=== PATIENT | female | born 1970 | race American Indian/Alaskan Native ===

== ENCOUNTER 2017-03-04 22:15 | Inpatient (IN) | payer OTHER ==
[~2017-03-04 22:15] MED LIST: AMIDATE IV ONE; QUELICIN ONE; VERSED IV ONE
--- NOTE | 2017-03-04 23:06 | Emergency Department Report ---
History of Present Illness - General Stated Complaint: OVERDOSE Time Seen by Provider: 03/04/17 22:38 Source: family, EMS Mode of arrival: Stretcher Limitations: Altered Mental Status - History of Present Illness Initial Comments: 46-year-old female with a past medical history hypertension presents to the hospital with overdose attempt. Patient is significantly sedated and unable to provide any history of present illness. History obtained from and EMS at the bedside. states that patient came to him and told him that she had ingested 60 tablets of Benadryl 50 mg. called EMS immediately at 9: 30 PM. Patient was speaking to EMS in route. Vomited 7 times prior to arrival , and is currently sedated. He denies alcohol use tonight, drug use, or other known coingestions. No previous history of suicide attempt. They have been having recent marital problems. Today's also her daughter's birthday and they went today together with no point abnormal behavior. - Related Data Home Medications Medication Instructions Recorded Confirmed Last Taken Unobtainable 03/05/17 03/05/17 Unknown Allergies Allergy/AdvReac Type Severity Reaction Status Date / Time No Known Allergies Allergy Verified 03/04/17 23:57 ED Review of Systems ROS: Stated complaint: OVERDOSE Other details as noted in HPI Comment: Unobtainable due to pts medical conditions ED Past Medical Hx - Medications Home Medications: Home Medications Medication Instructions Recorded Confirmed Last Taken Type Unobtainable 03/05/17 03/05/17 Unknown History ED Physical Exam - Other Other exam information: General: Lethargic Head exam: Atraumatic, normocephalic Eyes exam: Normal appearance, pupils 2-3 mm equal bilaterally and reactive ENT: Moist mucous membrane Neck exam: Normal inspection Respiratory exam: Clear to auscultation bilateral, no wheezes, rales, crackles Cardiovascular: Normal rate and rhythm Abdomen: Soft, nondistended, and nontender, with normal bowel sounds, no rebound, or guarding : 2 vaginal piercings Extremity: Full range of motion normal inspection no deformity Back: Normal Inspection, full range of motion, no tenderness Neurologic: Alert, opens eyes to tactile stimulation, does not follow commands, moves all limbs spontaneously, patient localizes her withdraws from pain Psychiatric: Depressed and sedated Skin: Warm, dry, intact ED Course Vital Signs 03/04/17 03/04/17 03/04/17 22:40 22:50 22:56 Temperature 97.7 F Pulse Rate 84 81 Respiratory 16 16 16 Rate Blood Pressure 135/84 Blood Pressure 134/85 [Right] O2 Sat by Pulse 99 99 99 Oximetry 03/04/17 03/04/17 03/04/17 23:00 23:30 23:51 Temperature Pulse Rate 79 68 76 Respiratory 16 18 17 Rate Blood Pressure Blood Pressure 143/87 136/82 [Right] O2 Sat by Pulse 100 99 100 Oximetry 03/05/17 03/05/17 03/05/17 00:00 00:10 00:15 Temperature Pulse Rate 108 H 102 H 103 H Respiratory 19 10 L 22 Rate Blood Pressure 213/134 160/99 184/103 Blood Pressure [Right] O2 Sat by Pulse 100 100 98 Oximetry 03/05/17 03/05/17 03/05/17 00:30 00:45 01:05 Temperature Pulse Rate 113 H 79 64 Respiratory 25 H 15 Rate Blood Pressure 241/135 176/110 133/80 Blood Pressure [Right] O2 Sat by Pulse 100 100 100 Oximetry 03/05/17 03/05/17 03/05/17 01:30 01:45 01:48 Temperature Pulse Rate 65 64 64 Respiratory 18 18 Rate Blood Pressure 150/92 139/85 Blood Pressure 133/83 [Right] O2 Sat by Pulse 100 100 Oximetry 03/05/17 03/05/17 03/05/17 02:00 02:16 02:30 Temperature Pulse Rate 64 64 63 Respiratory 18 18 18 Rate Blood Pressure 144/84 133/80 136/77 Blood Pressure [Right] O2 Sat by Pulse 100 100 99 Oximetry 03/05/17 03/05/17 03/05/17 02:45 03:00 03:15 Temperature Pulse Rate 60 62 63 Respiratory 18 18 18 Rate Blood Pressure 135/81 136/80 138/81 Blood Pressure [Right] O2 Sat by Pulse 100 99 99 Oximetry 03/05/17 03/05/17 03:30 04:30 Temperature Pulse Rate 60 61 Respiratory 18 Rate Blood Pressure 140/82 154/91 Blood Pressure [Right] O2 Sat by Pulse 100 100 Oximetry - Reevaluation(s) Reevaluation #1: 03/05/17 00:05 I was called into room due to patient's having tonic-clonic seizure activity. Last listed 1 minute. Ativan 1 mg given after seizure had artery stopped. Patient noticed to have bigeminy on the monitor that was temporary and then returned to sinus rhythm after intubation. Patient was intubated with etomidate and succinylcholine and given subsequent additional Ativan 1 mg followed by Versed 5 mg for sedation while waiting fentanyl and Ativan drip to come from pharmacy. CT head has been ordered. Blood pressure is now elevated, patient blood pressure is now elevated, repeat/30 EKG now shows QRS of 94 and QTC of 527. Given the increasing QTC 2 amps of bicarbonate have been ordered 03/05/17 05:17 Reevaluation #2: 03/05/17 01:47 30 min after 2 amps of sodium bicarb pt's qtc is now 308, qrs is 91. - Consultations Consultation #1: 03/04/17 23:02 Cased d/w Roman with poison control. Recommended to monitor for signs of anticholinergic toxicity. r/o coingestions. Benzos recommended as needed for seizures. Continue to monitor QRS to determine if greater than 100. Continue to monitor QTc for greater than 500. 4 QTc control optimized electrolytes magnesium should be 2, potassium should be 4, calcium should be 9. Recommend at least 6-8 hours observation. Benadryl peak is approximately 2 hours. Recommend KUB to evaluate for bezoar 03/04/17 23:46 Received callback from poison control after consultation with the driller hand. Recommend repeat EKG 30 minutes after initial and if any widening QRS or further prolongation and QTc recommend 2 Amps of sodium bicarbonate. Repeat EKG reveals decreasing QRS and QTC compared to previous. 03/05/17 01:52 case rediscussed with Vinay with poison. Repeat EKG's discussed. Bicarb only recommened for prolonged qrs, not qtc. qtc prolongation related to electroyte abnormalities. Pt has hypokalemia with other normal visualized. IV potassium ordered. - Intubation Time Out Performed: Yes Sedative: Etomidate Mg Given: 20 Paralytic: Succinylcholine Mg Given: 100 Laryngoscope: Trinh Size: 3 ET Tube Size: 7.5 Tube Secured Depth (cm): 25 Tube Secured Location: lips Tube Placement Confirmation: visualized tube passing t, equal breath sounds bilat, no breath sounds over epi, confirmation by capnometr Patient Tolerated Procedure: well Intubation Complications: none Additional Comments: Chest x-ray reveals right mainstem intubation. Tube was pulled back to 23 cm at the lip after x-ray review. ED Medical Decision Making - Lab Data Result diagrams: 03/04/17 23:14 03/04/17 23:14 Lab Results 03/04/17 03/04/17 03/04/17 Range/Units 23:14 23:14 23:14 WBC 5.9 (4.5-11.0) K/mm3 RBC 4.00 (3.65-5.03) M/mm3 Hgb 11.9 (10.1-14.3) gm/dl Hct 35.3 (30.3-42.9) % MCV 88 (79-97) fl MCH 30 (28-32) pg MCHC 34 (30-34) % RDW 14.6 (13.2-15.2) % Plt Count 233 (140-440) K/mm3 Lymph % (Auto) 20.7 (13.4-35.0) % Briscoe % (Auto) 7.1 (0.0-7.3) % Eos % (Auto) 3.2 (0.0-4.3) % Baso % (Auto) 0.6 (0.0-1.8) % Lymph # 1.2 (1.2-5.4) K/mm3 Briscoe # 0.4 (0.0-0.8) K/mm3 Eos # 0.2 (0.0-0.4) K/mm3 Baso # 0.0 (0.0-0.1) K/mm3 Seg Neutrophils % 68.4 (40.0-70.0) % Seg Neutrophils # 4.1 (1.8-7.7) K/mm3 ABG pH (7.350-7.450) pH Units ABG pCO2 mm Hg ABG pO2 (80.0-90.0) mm Hg ABG HCO3 (20.0-26.0) mmol/L ABG O2 Saturation (95.0-99.0) % ABG O2 Content (0.0-44) ABG Base Excess (-2.0-3.0) mmol/L ABG Hemoglobin (12.0-16.0) gm/dl ABG Carboxyhemoglobin (0.0-5.0) % ABG Methemoglobin (0.0-1.5) % Oxyhemoglobin (95.0-99.0) % FiO2 % Sodium 143 (137-145) mmol/L Potassium 2.3 L* (3.6-5.0) mmol/L Chloride 97.6 L (98-107) mmol/L Carbon Dioxide 30 (22-30) mmol/L Anion Gap 18 mmol/L BUN 15 (7-17) mg/dL Creatinine 0.8 (0.7-1.2) mg/dL Estimated GFR > 60 ml/min BUN/Creatinine Ratio 19 % Glucose 102 H (65-100) mg/dL Calcium 8.8 (8.4-10.2) mg/dL Magnesium 1.90 (1.7-2.3) mg/dL Total Bilirubin (0.1-1.2) mg/dL Direct Bilirubin (0-0.2) mg/dL Indirect Bilirubin mg/dL AST (5-40) units/L ALT (7-56) units/L Alkaline Phosphatase (35-129) units/L Total Creatine Kinase (30-135) units/L Total Protein (6.3-8.2) g/dL Albumin (3.9-5) g/dL Albumin/Globulin Ratio % HCG, Qual (Negative) Urine Color (Yellow) Urine Turbidity (Clear) Urine pH (5.0-7.0) Ur Specific Rector (1.003-1.030) Urine Protein (Negative) mg/dL Urine Glucose (UA) (Negative) mg/dL Urine Ketones (Negative) mg/dL Urine Blood (Negative) Urine Nitrite (Negative) Urine Bilirubin (Negative) Urine Urobilinogen (<2.0) mg/dL Ur Leukocyte Esterase (Negative) Urine WBC (Auto) (0.0-6.0) /HPF Urine RBC (Auto) (0.0-6.0) /HPF U Epithel Cells (Auto) (0-13.0) /HPF Hyaline Casts /LPF Salicylates < 0.3 L (2.8-20.0) mg/dL Urine Opiates Screen Urine Methadone Screen Acetaminophen (10.0-30.0) ug/mL Ur Barbiturates Screen Ur Phencyclidine Scrn Ur Amphetamines Screen U Benzodiazepines Scrn Urine Cocaine Screen U Marijuana (THC) Screen Plasma/Serum Alcohol (0-0.07) gm% 03/04/17 03/04/17 03/04/17 Range/Units 23:14 23:14 23:14 WBC (4.5-11.0) K/mm3 RBC (3.65-5.03) M/mm3 Hgb (10.1-14.3) gm/dl Hct (30.3-42.9) % MCV (79-97) fl MCH (28-32) pg MCHC (30-34) % RDW (13.2-15.2) % Plt Count (140-440) K/mm3 Lymph % (Auto) (13.4-35.0) % Briscoe % (Auto) (0.0-7.3) % Eos % (Auto) (0.0-4.3) % Baso % (Auto) (0.0-1.8) % Lymph # (1.2-5.4) K/mm3 Briscoe # (0.0-0.8) K/mm3 Eos # (0.0-0.4) K/mm3 Baso # (0.0-0.1) K/mm3 Seg Neutrophils % (40.0-70.0) % Seg Neutrophils # (1.8-7.7) K/mm3 ABG pH (7.350-7.450) pH Units ABG pCO2 mm Hg ABG pO2 (80.0-90.0) mm Hg ABG HCO3 (20.0-26.0) mmol/L ABG O2 Saturation (95.0-99.0) % ABG O2 Content (0.0-44) ABG Base Excess (-2.0-3.0) mmol/L ABG Hemoglobin (12.0-16.0) gm/dl ABG Carboxyhemoglobin (0.0-5.0) % ABG Methemoglobin (0.0-1.5) % Oxyhemoglobin (95.0-99.0) % FiO2 % Sodium (137-145) mmol/L Potassium (3.6-5.0) mmol/L Chloride (98-107) mmol/L Carbon Dioxide (22-30) mmol/L Anion Gap mmol/L BUN (7-17) mg/dL Creatinine (0.7-1.2) mg/dL Estimated GFR ml/min BUN/Creatinine Ratio % Glucose (65-100) mg/dL Calcium (8.4-10.2) mg/dL Magnesium (1.7-2.3) mg/dL Total Bilirubin (0.1-1.2) mg/dL Direct Bilirubin (0-0.2) mg/dL Indirect Bilirubin mg/dL AST (5-40) units/L ALT (7-56) units/L Alkaline Phosphatase (35-129) units/L Total Creatine Kinase 87 (30-135) units/L Total Protein (6.3-8.2) g/dL Albumin (3.9-5) g/dL Albumin/Globulin Ratio % HCG, Qual Negative (Negative) Urine Color (Yellow) Urine Turbidity (Clear) Urine pH (5.0-7.0) Ur Specific Rector (1.003-1.030) Urine Protein (Negative) mg/dL Urine Glucose (UA) (Negative) mg/dL Urine Ketones (Negative) mg/dL Urine Blood (Negative) Urine Nitrite (Negative) Urine Bilirubin (Negative) Urine Urobilinogen (<2.0) mg/dL Ur Leukocyte Esterase (Negative) Urine WBC (Auto) (0.0-6.0) /HPF Urine RBC (Auto) (0.0-6.0) /HPF U Epithel Cells (Auto) (0-13.0) /HPF Hyaline Casts /LPF Salicylates (2.8-20.0) mg/dL Urine Opiates Screen Urine Methadone Screen Acetaminophen < 15.0 (10.0-30.0) ug/mL Ur Barbiturates Screen Ur Phencyclidine Scrn Ur Amphetamines Screen U Benzodiazepines Scrn Urine Cocaine Screen U Marijuana (THC) Screen Plasma/Serum Alcohol (0-0.07) gm% 03/04/17 03/04/17 03/04/17 Range/Units 23:14 23:14 23:20 WBC (4.5-11.0) K/mm3 RBC (3.65-5.03) M/mm3 Hgb (10.1-14.3) gm/dl Hct (30.3-42.9) % MCV (79-97) fl MCH (28-32) pg MCHC (30-34) % RDW (13.2-15.2) % Plt Count (140-440) K/mm3 Lymph % (Auto) (13.4-35.0) % Briscoe % (Auto) (0.0-7.3) % Eos % (Auto) (0.0-4.3) % Baso % (Auto) (0.0-1.8) % Lymph # (1.2-5.4) K/mm3 Briscoe # (0.0-0.8) K/mm3 Eos # (0.0-0.4) K/mm3 Baso # (0.0-0.1) K/mm3 Seg Neutrophils % (40.0-70.0) % Seg Neutrophils # (1.8-7.7) K/mm3 ABG pH 7.465 H (7.350-7.450) pH Units ABG pCO2 44.8 mm Hg ABG pO2 103.1 H (80.0-90.0) mm Hg ABG HCO3 31.5 H (20.0-26.0) mmol/L ABG O2 Saturation 97.8 (95.0-99.0) % ABG O2 Content 15.6 (0.0-44) ABG Base Excess 7.0 H (-2.0-3.0) mmol/L ABG Hemoglobin 11.5 L (12.0-16.0) gm/dl ABG Carboxyhemoglobin 1.5 (0.0-5.0) % ABG Methemoglobin 0.5 (0.0-1.5) % Oxyhemoglobin 95.8 (95.0-99.0) % FiO2 21 % Sodium (137-145) mmol/L Potassium (3.6-5.0) mmol/L Chloride (98-107) mmol/L Carbon Dioxide (22-30) mmol/L Anion Gap mmol/L BUN (7-17) mg/dL Creatinine (0.7-1.2) mg/dL Estimated GFR ml/min BUN/Creatinine Ratio % Glucose (65-100) mg/dL Calcium (8.4-10.2) mg/dL Magnesium (1.7-2.3) mg/dL Total Bilirubin 0.40 (0.1-1.2) mg/dL Direct Bilirubin < 0.2 (0-0.2) mg/dL Indirect Bilirubin 0.2 mg/dL AST 15 (5-40) units/L ALT 10 (7-56) units/L Alkaline Phosphatase 86 (35-129) units/L Total Creatine Kinase (30-135) units/L Total Protein 6.8 (6.3-8.2) g/dL Albumin 3.9 (3.9-5) g/dL Albumin/Globulin Ratio 1.3 % HCG, Qual (Negative) Urine Color (Yellow) Urine Turbidity (Clear) Urine pH (5.0-7.0) Ur Specific Rector (1.003-1.030) Urine Protein (Negative) mg/dL Urine Glucose (UA) (Negative) mg/dL Urine Ketones (Negative) mg/dL Urine Blood (Negative) Urine Nitrite (Negative) Urine Bilirubin (Negative) Urine Urobilinogen (<2.0) mg/dL Ur Leukocyte Esterase (Negative) Urine WBC (Auto) (0.0-6.0) /HPF Urine RBC (Auto) (0.0-6.0) /HPF U Epithel Cells (Auto) (0-13.0) /HPF Hyaline Casts /LPF Salicylates (2.8-20.0) mg/dL Urine Opiates Screen Urine Methadone Screen Acetaminophen (10.0-30.0) ug/mL Ur Barbiturates Screen Ur Phencyclidine Scrn Ur Amphetamines Screen U Benzodiazepines Scrn Urine Cocaine Screen U Marijuana (THC) Screen Plasma/Serum Alcohol < 0.01 (0-0.07) gm% 03/05/17 03/05/17 Range/Units 02:07 02:07 WBC (4.5-11.0) K/mm3 RBC (3.65-5.03) M/mm3 Hgb (10.1-14.3) gm/dl Hct (30.3-42.9) % MCV (79-97) fl MCH (28-32) pg MCHC (30-34) % RDW (13.2-15.2) % Plt Count (140-440) K/mm3 Lymph % (Auto) (13.4-35.0) % Briscoe % (Auto) (0.0-7.3) % Eos % (Auto) (0.0-4.3) % Baso % (Auto) (0.0-1.8) % Lymph # (1.2-5.4) K/mm3 Briscoe # (0.0-0.8) K/mm3 Eos # (0.0-0.4) K/mm3 Baso # (0.0-0.1) K/mm3 Seg Neutrophils % (40.0-70.0) % Seg Neutrophils # (1.8-7.7) K/mm3 ABG pH (7.350-7.450) pH Units ABG pCO2 mm Hg ABG pO2 (80.0-90.0) mm Hg ABG HCO3 (20.0-26.0) mmol/L ABG O2 Saturation (95.0-99.0) % ABG O2 Content (0.0-44) ABG Base Excess (-2.0-3.0) mmol/L ABG Hemoglobin (12.0-16.0) gm/dl ABG Carboxyhemoglobin (0.0-5.0) % ABG Methemoglobin (0.0-1.5) % Oxyhemoglobin (95.0-99.0) % FiO2 % Sodium (137-145) mmol/L Potassium (3.6-5.0) mmol/L Chloride (98-107) mmol/L Carbon Dioxide (22-30) mmol/L Anion Gap mmol/L BUN (7-17) mg/dL Creatinine (0.7-1.2) mg/dL Estimated GFR ml/min BUN/Creatinine Ratio % Glucose (65-100) mg/dL Calcium (8.4-10.2) mg/dL Magnesium (1.7-2.3) mg/dL Total Bilirubin (0.1-1.2) mg/dL Direct Bilirubin (0-0.2) mg/dL Indirect Bilirubin mg/dL AST (5-40) units/L ALT (7-56) units/L Alkaline Phosphatase (35-129) units/L Total Creatine Kinase (30-135) units/L Total Protein (6.3-8.2) g/dL Albumin (3.9-5) g/dL Albumin/Globulin Ratio % HCG, Qual (Negative) Urine Color Straw (Yellow) Urine Turbidity Clear (Clear) Urine pH 9.0 H (5.0-7.0) Ur Specific Rector 1.010 (1.003-1.030) Urine Protein <15 mg/dl (Negative) mg/dL Urine Glucose (UA) Neg (Negative) mg/dL Urine Ketones Neg (Negative) mg/dL Urine Blood Neg (Negative) Urine Nitrite Neg (Negative) Urine Bilirubin Neg (Negative) Urine Urobilinogen < 2.0 (<2.0) mg/dL Ur Leukocyte Esterase Neg (Negative) Urine WBC (Auto) < 1.0 (0.0-6.0) /HPF Urine RBC (Auto) 1.0 (0.0-6.0) /HPF U Epithel Cells (Auto) < 1.0 (0-13.0) /HPF Hyaline Casts 1 /LPF Salicylates (2.8-20.0) mg/dL Urine Opiates Screen Presumptive negative Urine Methadone Screen Presumptive negative Acetaminophen (10.0-30.0) ug/mL Ur Barbiturates Screen Presumptive negative Ur Phencyclidine Scrn Presumptive negative Ur Amphetamines Screen Presumptive negative U Benzodiazepines Scrn Presumptive positive Urine Cocaine Screen Presumptive negative U Marijuana (THC) Screen Presumptive negative Plasma/Serum Alcohol (0-0.07) gm% - EKG Data -: EKG Interpreted by Me (sinus 81, lvh with repol qrs 105, qtc 453) - EKG Data 03/04/17 23:47 Repeat EKG performed at 2342 showed sinus rhythm rate 73 with LVH with re-pole. QRS 86 QTc 442 which is a decrease compared to previous EKG - Radiology Data Radiology results: report reviewed (ct head: naf), image reviewed (chest x-ray shows right mainstem intubation no acute infiltrate) interpreted by me: KUB: No bezoar identified, probable calcified fibroid, read by me - Medical Decision Making Patient requires ICU admission. Intubated for anticholinergic toxicity was altering ultimately mental status and seizure activity. Intubated on Versed and fentanyl drip per IV potassium ordered. Please control consultation. - Differential Diagnosis suicidal, overdose Critical Care Time: No Critical care attestation.: If time is entered above; I have spent that time in minutes in the direct care of this critically ill patient, excluding procedure time. ED Disposition Clinical Impression: Anticholinergic drug overdose, Seizure, Suicidal deliberate poisoning, Hypokalemia, Endotracheally intubated Disposition: - OP ADMIT IP TO THIS HOSP Is pt being admited?: Yes Condition: Serious Time of Disposition: 02:02
[2017-03-04] MEDS ORDERED: NACL 0.9% 1000 ML 1,000 ML IV ONE (23:35)
[2017-03-04 23:37] LABS: ABG HCO3 31.5 mmol/L (20.0-26.0); ABG Oxygen Saturation 97.8 % (95.0-99.0); ABG PCO2 44.8 mm Hg; ABG PH 7.465 pH Units (7.350-7.450); ABG PO2 103.1 mm Hg (80.0-90.0)
[2017-03-04] MEDS ORDERED: ATIVAN ONE (23:56)
[2017-03-05 00:03] LABS: Basophils % (Auto) 0.6 % (0.0-1.8); Eosinophils % (Auto) 3.2 % (0.0-4.3); Hematocrit 35.3 % (30.3-42.9); Hemoglobin 11.9 gm/dl (10.1-14.3); Mean Corpuscular HGB Conc 34 % (30-34); Mean Corpuscular Hemoglobin 30 pg (28-32); Mean Corpuscular Volume 88 fl (79-97); Platelet Count 233 K/mm3 (140-440); Red Cell Distribution Width 14.6 % (13.2-15.2); White Blood Count 5.9 K/mm3 (4.5-11.0)
[2017-03-05] MEDS ORDERED: ARTIFICIAL TEARS OPHTH OINT OU PRN (00:06)
[2017-03-05] MEDS ORDERED: VASELINE LIP THERAPY TP PRN (00:06)
[2017-03-05] MEDS ORDERED: VERSED IV ONE (00:07)
[2017-03-05] MEDS ORDERED: QUELICIN IV ONE (00:10)
[2017-03-05] MEDS ORDERED: ATIVAN IV ONE ×2 (00:10→00:17)
[2017-03-05] MEDS ORDERED: AMIDATE IV ONE (00:10)
[2017-03-05] MEDS ORDERED: SODIUM BICARBONATE IV ONE ×3 (00:42→00:49)
[2017-03-05] MEDS ORDERED: NACL 0.9% 500 ML IV SCH (01:00)
[2017-03-05] MEDS ORDERED: ATIVAN 100 MG in NACL 0.9% 50 ML, VIAFLEX EMPTY CONTAINER 0 ML IV SCH (01:00)
[2017-03-05] MEDS ORDERED: VERSED IV NR (01:00)
[2017-03-05] MEDS ORDERED: fentaNYL DRIP Premix 2,000 MCG/100 ML BAG IV SCH (01:00)
[2017-03-05 01:04] LABS: Anion Gap 18 mmol/L; BUN/Creatinine Ratio 19; Blood Urea Nitrogen 15 mg/dL (7-17); Calcium 8.8 mg/dL (8.4-10.2); Carbon Dioxide 30 mmol/L (22-30); Chloride 97.6 mmol/L (98-107); Glucose 102 mg/dL (65-100); Sodium 143 mmol/L (137-145)
[2017-03-05 01:07] LABS: Alanine Aminotransferase 10 units/L (7-56); Albumin 3.9 g/dL (3.9-5); Albumin/Globulin Ratio 1.3 %; Alkaline Phosphatase 86 units/L (35-129); Total Protein 6.8 g/dL (6.3-8.2)
[2017-03-05 01:11] LABS: Bilirubin,Direct < 0.2 mg/dL (0-0.2); Bilirubin,Indirect 0.2 mg/dL
[2017-03-05 01:17] LABS: Potassium 2.3 mmol/L (3.6-5.0)
--- NOTE | 2017-03-05 01:35 | Cat Scan Report ---
FINAL REPORT EXAM: CT HEAD/BRAIN WO CON HISTORY: seizure, benadryl overdose, ams TECHNIQUE: Routine axial imaging was obtained of the brain without IV contrast. FINDINGS: There are no attenuation abnormalities. The ventricular system is appropriate in size and is symmetric. The posterior fossa structures appear normal. The sinuses are clear. The mastoid air cells are well pneumatized. IMPRESSION: Within normal limits.
[2017-03-05 02:10] LABS: Urine Drugs of Abuse Note Disclamer
[2017-03-05] MEDS: KCL 10MEQ/100ML 10 MEQ/100 ML BAG IV SCH ×7 (02:11→15:40)
[2017-03-05] MEDS ORDERED: ZOFRAN IV PRN (02:23)
[2017-03-05] MEDS ORDERED: MILK OF MAGNESIA PO PRN (02:23)
[2017-03-05] MEDS ORDERED: TYLENOL PO PRN (02:23)
--- NOTE | 2017-03-05 02:23 | History and Physical Report ---
History of Present Illness Date of examination: 03/05/17 History of present illness: 46-year-old man with medical problems brought to the emergency room because she took 24 tablets of Benadryl, 50 mg and 32 sleeping pills. In the emergency room she had a seizure and was intubated. at bedside stated that she wanted to kill herself, there is some marital problems going on. Episodes of vomiting. Her review of systems is unobtainable PAST MEDICAL HISTORY:none PAST SURGICAL HISTORY: None FAMILY HISTORY: Hypertension SOCIAL HISTORY: Denies alcohol, tobacco, drugs Medications and Allergies Allergies Allergy/AdvReac Type Severity Reaction Status Date / Time No Known Allergies Allergy Verified 03/04/17 23:57 Home Medications Medication Instructions Recorded Confirmed Last Taken Type Unobtainable 03/05/17 03/05/17 Unknown History Active Meds: Active Medications Hydrophilic Ointment (Vaseline Lip Therapy) 1 applic TP Q2HR PRN PRN Reason: Dry Lips Fentanyl Citrate (Fentanyl Drip Premix) 2,000 mcg in 100 mls @ 3.175 mls/hr IV TITR JOHN; 1 MCG/KG/HR PRN Reason: Protocol Last Admin: 03/05/17 00:53 Dose: 1 mcg/kg/hr, 3.175 mls/hr Lorazepam 100 mg/ Sodium Chloride/ Miscellaneous Information 100 mls @ 1 mls/ hr IV TITR JOHN; 1 MG/HR PRN Reason: Protocol Last Admin: 03/05/17 01:07 Dose: 1 mg/hr, 1 mls/hr Potassium Chloride (Kcl 10meq/100ml) 10 meq in 100 mls @ 100 mls/hr IV Q1H JOHN Stop: 03/05/17 05:59 Last Admin: 03/05/17 02:11 Dose: 100 mls/hr Multi-Ingred Cream/Lotion/Oil/Oint (Artificial Tears Ophth Oint) 1 applic OU Q4HR PRN PRN Reason: Dry Eye(s) Sodium Bicarbonate (Sodium Bicarbonate) 50 meq IV ONCE ONE Stop: 03/05/17 00:43 Last Admin: 03/05/17 00:48 Dose: 50 meq Sodium Bicarbonate (Sodium Bicarbonate) 50 meq IV ONCE ONE Stop: 03/05/17 00:44 Last Admin: 03/05/17 00:48 Dose: 50 meq Sodium Chloride (Nacl 0.9% 500 Ml) 1 ml IV DIRECT JOHN Exam - Physical Exam Narrative exam: Gen. appearance: Patient lying in bed in no acute distress, intubated HEENT: Normocephalic/atraumatic, pupils equal round reactive to light, unable to do extra alkaline movement , no scleral icterus, no JVD or thyromegaly or nodule, neck is supple, mucous membrane moist, no erythema or exudate Heart: S1-S2, regular rate and rhythm Lungs: Clear to auscultation bilateral breathing comfortable Abdomen: Positive bowel sounds, nontender, nondistended, no organomegaly Extremities: No edema, cyanosis, clubbing Neuro:: sedated Skin: No rash, nodules, warm dry - Constitutional Vitals: Temp Pulse Resp BP Pulse Ox 97.7 F 64 18 144/84 100 03/04/17 22:56 03/05/17 02:00 03/05/17 02:00 03/05/17 02:00 03/05/17 02:00 Results - Labs CBC & Chem 7: 03/04/17 23:14 03/04/17 23:14 Labs: Abnormal lab results 03/04/17 03/04/17 03/04/17 Range/Units 23:14 23:14 23:20 ABG pH 7.465 H (7.350-7.450) pH Units ABG pO2 103.1 H (80.0-90.0) mm Hg ABG HCO3 31.5 H (20.0-26.0) mmol/L ABG Base Excess 7.0 H (-2.0-3.0) mmol/L ABG Hemoglobin 11.5 L (12.0-16.0) gm/dl Potassium 2.3 L* (3.6-5.0) mmol/L Chloride 97.6 L (98-107) mmol/L Glucose 102 H (65-100) mg/dL Salicylates < 0.3 L (2.8-20.0) mg/dL - Imaging and Cardiology EKG: image reviewed Chest x-ray: image reviewed CT Scan - head: report reviewed Assessment and Plan Assessment Acute respiratory failure Drug overdose Seizure prophylaxis secondary to #2 Suicidal attempt Plan Admit to medicine Continue Ativan drip, start IV fluid, consult critical care Monitor QT, QRS See poison control recommendations per emergency room physician note Consults psych when patient is awake DVT prophylaxis
[2017-03-05 02:25] LABS: Bilirubin,Urine NEG (Negative); Blood,Urine NEG (Negative); Ketones,Urine NEG (Negative); Leukocyte Esterase,Urine NEG (Negative); Nitrite,Urine NEG (Negative); Protein,Urine <15 mg/dL mg/dL (Negative); Urobilinogen,Urine < 2.0 mg/dL (<2.0); WBC,Urine < 1.0 /HPF (0.0-6.0)
[2017-03-05] MEDS: NACL 0.9% 1000 ML 1,000 ML IV SCH ×3 (03:30→14:34)
[2017-03-05] MEDS ORDERED: KCL 10MEQ/100ML 10 MEQ/100 ML BAG IV ONE ×2 (04:24→05:45)
[2017-03-05 04:43] LABS: ABG Base Excess 7.6 mmol/L (-2.0-3.0); ABG HCO3 28.9 mmol/L (20.0-26.0); ABG Oxygen Saturation 99.4 % (95.0-99.0); ABG PCO2 30.6 mm Hg; ABG PH 7.593 pH Units (7.350-7.450); ABG PO2 212.2 mm Hg (80.0-90.0)
--- NOTE | 2017-03-05 07:35 | XRay Report ---
SUPINE KUB: History: Overdose. The abdominal gas pattern is unremarkable. No masses or organomegaly is identified and there is no gross evidence of free air or fluid. 4 cm calcified uterine fibroid in the central pelvis is noted. IMPRESSION: No acute process identified.
--- NOTE | 2017-03-05 07:42 | XRay Report ---
AP CHEST: HISTORY: Endotracheal tube placement This exam is just presented to me for interpretation. The endotracheal tube appears to terminate at the orifice of the right mainstem bronchus. There appears to be partial atelectasis in the left lower lobe. These findings are concerning for a partial right mainstem bronchus intubation. Recommend retraction of endotracheal tube by 3-4 cm. The remaining lungs are clear. No pleural effusion or pneumothorax. Normal heart and mediastinal structures. IMPRESSION: Partial right mainstem bronchus intubation with partial atelectasis in the left lower lobe. These findings were discussed with Luis Carlos, ER Director, at 0738 hrs.
[2017-03-05 07:43] LABS: Hematocrit 32.3 % (30.3-42.9); Hemoglobin 10.8 gm/dl (10.1-14.3); Mean Corpuscular HGB Conc 33 % (30-34); Mean Corpuscular Hemoglobin 30 pg (28-32); Mean Corpuscular Volume 89 fl (79-97); Platelet Count 219 K/mm3 (140-440); Red Blood Count 3.63 M/mm3 (3.65-5.03); Red Cell Distribution Width 14.7 % (13.2-15.2)
[2017-03-05 07:58] LABS: Anion Gap 15 mmol/L; BUN/Creatinine Ratio 19; Blood Urea Nitrogen 13 mg/dL (7-17); Calcium 7.8 mg/dL (8.4-10.2); Carbon Dioxide 30 mmol/L (22-30); Chloride 100.5 mmol/L (98-107); Glucose 95 mg/dL (65-100); Sodium 143 mmol/L (137-145)
[2017-03-05 08:18] LABS: Potassium 2.4 mmol/L (3.6-5.0)
--- NOTE | 2017-03-05 08:34 | XRay Report ---
AP CHEST: HISTORY: Endotracheal tube placement The endotracheal tube has been retracted since earlier today at 0021 hours and now terminates 5 cm superior to the angelina. Left lower lobe atelectasis has resolved. The lungs are clear. Normal heart and mediastinal structures. IMPRESSION: Unremarkable AP chest.
--- NOTE | 2017-03-05 09:06 | Consultation ---
History of Present Illness Consult date: 03/05/17 Requesting physician: JUNIOR COLEY Reason for consult: other (Acute Respiratory Failure; Drug Overdose) History of present illness: PULMONARY/CCM CONSULT NOTE (Full dictation # [id number]) Please see dictated notes for full details Medications and Allergies Allergies Allergy/AdvReac Type Severity Reaction Status Date / Time No Known Allergies Allergy Verified 03/04/17 23:57 Home Medications Medication Instructions Recorded Confirmed Last Taken Type Hydrochlorothiazide [HCTZ] 25 mg PO QDAY 03/05/17 03/05/17 Unknown History Active Meds: Active Medications Acetaminophen (Tylenol) 650 mg PO Q4H PRN PRN Reason: Pain MILD(1-3)/Fever >100.5/CASPER Enoxaparin Sodium (Lovenox) 40 mg SUB-Q QDAY@1000 JOHN Hydrophilic Ointment (Vaseline Lip Therapy) 1 applic TP Q2HR PRN PRN Reason: Dry Lips Fentanyl Citrate (Fentanyl Drip Premix) 2,000 mcg in 100 mls @ 3.175 mls/hr IV TITR JOHN; 1 MCG/KG/HR PRN Reason: Protocol Last Admin: 03/05/17 00:53 Dose: 1 mcg/kg/hr, 3.175 mls/hr Lorazepam 100 mg/ Sodium Chloride/ Miscellaneous Information 100 mls @ 1 mls/ hr IV TITR JOHN; 1 MG/HR PRN Reason: Protocol Last Admin: 03/05/17 01:07 Dose: 1 mg/hr, 1 mls/hr Sodium Chloride (Nacl 0.9% 1000 Ml) 1,000 mls @ 150 mls/hr IV DIRECT JOHN Last Admin: 03/05/17 03:30 Dose: 150 mls/hr Magnesium Hydroxide (Milk Of Magnesia) 30 ml PO Q4H PRN PRN Reason: Constipation Multi-Ingred Cream/Lotion/Oil/Oint (Artificial Tears Ophth Oint) 1 applic OU Q4HR PRN PRN Reason: Dry Eye(s) Ondansetron HCl (Zofran) 4 mg IV Q8H PRN PRN Reason: N/V unrelieved by Reglan Sodium Chloride (Nacl 0.9% 500 Ml) 1 ml IV DIRECT JOHN Physical Examination Vital signs: Vital Signs Pulse Resp BP Pulse Ox 84 16 134/85 99 03/04/17 22:40 03/04/17 22:40 03/04/17 22:40 03/04/17 22:40 Results - Laboratory Findings CBC and BMP: 03/05/17 07:21 03/05/17 07:21 ABG ABG pH 7.593 pH Units (7.350-7.450) H 03/05/17 00:30 ABG pCO2 30.6 mm Hg 03/05/17 00:30 ABG pO2 212.2 mm Hg (80.0-90.0) H 03/05/17 00:30 ABG O2 Saturation 99.4 % (95.0-99.0) H 03/05/17 00:30 Abnormal lab findings: Abnormal Labs 03/05/17 03/05/17 07:21 07:21 WBC 12.0 H RBC 3.63 L Potassium 2.4 L* Calcium 7.8 L
[2017-03-05] MEDS ORDERED: LOVENOX SUB-Q SCH (10:00)
[2017-03-05] MEDS ORDERED: APRESOLINE IV PRN (11:00)
[2017-03-05 11:27] LABS: Creatine Kinase 60 units/L (30-135)
[2017-03-05 11:30] LABS: Creatine Kinase MB < 1.0 ng/mL (0.0-4.0)
[2017-03-05] MEDS ORDERED: PROVENTIL IH PRN (12:00)
[2017-03-05] MEDS: LOVENOX SUB-Q SCH (12:21)
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
[2017-03-05] MEDS ORDERED: SODIUM BICARBONATE FEEDTUBE PRN (16:26)
[2017-03-05] MEDS ORDERED: PANCREAZE DR 10,500 UNIT FEEDTUBE PRN (16:26)
[2017-03-05] MEDS ORDERED: SIMPLE SYRUP FEEDTUBE PRN ×2 (16:26)
--- NOTE | 2017-03-05 16:28 | Event Note ---
Date: 03/05/17 Patient seen and examined in the ER, waiting for ICU bed Admitted with suicidal attempt with drugs Discussed with and mental health at bedside patient remained intubated, BP noted to be elevated. Will place on hydralazine iv as needed, initiate TF Continue current Mx and plan as dictated in the h and P.
[2017-03-05 17:01] LABS: ISTAT Base Excess 9; ISTAT HCO3 33.3; ISTAT PCO2 51.7 (35-45); ISTAT PH 7.417 (7.35-7.45); ISTAT PO2 126 (80-105); ISTAT SO2 99; ISTAT TCO2 35
[2017-03-06 04:18] LABS: Basophils % (Auto) 0.6 % (0.0-1.8); Eosinophils % (Auto) 1.1 % (0.0-4.3); Hematocrit 29.7 % (30.3-42.9); Mean Corpuscular HGB Conc 34 % (30-34); Mean Corpuscular Hemoglobin 29 pg (28-32); Mean Corpuscular Volume 87 fl (79-97); Platelet Count 168 K/mm3 (140-440); Red Blood Count 3.41 M/mm3 (3.65-5.03); Red Cell Distribution Width 14.9 % (13.2-15.2); White Blood Count 9.3 K/mm3 (4.5-11.0)
[2017-03-06 04:42] LABS: Anion Gap 15 mmol/L; BUN/Creatinine Ratio 15; Blood Urea Nitrogen 12 mg/dL (7-17); Carbon Dioxide 25 mmol/L (22-30); Chloride 106.9 mmol/L (98-107); Glucose 71 mg/dL (65-100); Sodium 144 mmol/L (137-145)
[2017-03-06] MEDS: NACL 0.9% 1000 ML 1,000 ML IV SCH (04:42)
[2017-03-06 04:44] LABS: Potassium 2.9 mmol/L (3.6-5.0)
[2017-03-06 05:57] LABS: ISTAT Base Excess 7; ISTAT HCO3 29.9; ISTAT PCO2 36.9 (35-45); ISTAT PH 7.518 (7.35-7.45); ISTAT PO2 122 (80-105); ISTAT SO2 99; ISTAT TCO2 31
--- NOTE | 2017-03-06 07:22 | XRay Report ---
SUPINE KUB: History: [place] sump placement Multiple lines and wires and umbilical piercing overlying the abdomen. The visualized bowel gas pattern is normal. The GI tube is folded upon itself in the fundus of the stomach with the distal tip just beneath the left hemidiaphragm. IMPRESSION: The GI tube terminates in the fundus of the stomach as described.
--- NOTE | 2017-03-06 07:24 | XRay Report ---
AP CHEST: HISTORY: Followup respiratory failure The endotracheal tube and GI tube are in adequate position. The lungs remain clear. Heart mediastinal structures are unremarkable. No acute process is identified. IMPRESSION: Unremarkable AP chest.
[2017-03-06] MEDS ORDERED: POTASSIUM CHLORIDE FEEDTUBE ONE ×2 (07:30→14:00)
[2017-03-06] MEDS: KCL 10MEQ/100ML 10 MEQ/100 ML BAG IV SCH ×7 (08:35→22:40)
--- NOTE | 2017-03-06 08:42 | XRay Report ---
SUPINE KUB: History: OG tube replaced. The OG tube has apparently been replacement remains in essentially the same position since earlier today at 0655 hours. The tube is slightly coiled upon itself in the fundus the stomach with the tip projecting beneath the left hemidiaphragm. The bowel gas pattern remains unremarkable. Calcified uterine fibroid is noted in the pelvis. IMPRESSION: OG tube as described.
--- NOTE | 2017-03-06 09:24 | Progress Note ---
Assessment and Plan Acute Respiratory Failure on MVS Acute Drug OD (Benadryl; Anticholinergic) HTN Depression Anemia Hypokalemia - hold fentanyl for sedation vacation - begin weaning via PSV as tolerated - place NGT if does not pass SBT - addressed VAP bundle - replaced potassium - psychiatry consulted - get EKG - continue GI & VTE prophylaxis - re-evaluate in am & prn ..34' CCT Subjective Date of service: 03/06/17 Principal diagnosis: Drug Overdose (Benadrl); Acute Respiratory Failure on MVS Interval history: Patient is seen today for: Acute resp failure on MVS; S/P Drug OD with benadryl Seen and examined at bedside; 24hour events reviewed; nursing and respiratory care staff consulted; no adverse overnight events reported to me; remains on MVS ; AMS is persistent but improving; arousable; No N/V/F/C; no repeat seizures; no critical arrhythmia's; no gross bleeding Objective Vital Signs - 12hr 03/05/17 03/05/17 03/05/17 21:30 21:48 21:50 Temperature Pulse Rate 54 L 83 78 Pulse Rate [ Apical] Respiratory 16 13 16 Rate Blood Pressure 138/78 179/91 O2 Sat by Pulse 100 Oximetry 03/05/17 03/05/17 03/05/17 22:00 22:10 22:20 Temperature Pulse Rate 69 62 59 L Pulse Rate [ 50 L Apical] Respiratory 14 16 16 Rate Blood Pressure 154/86 179/91 147/87 O2 Sat by Pulse 99 100 100 Oximetry 03/05/17 03/05/17 03/05/17 22:30 22:40 22:49 Temperature Pulse Rate 56 L 55 L 54 L Pulse Rate [ Apical] Respiratory 16 16 16 Rate Blood Pressure 153/86 153/86 149/81 O2 Sat by Pulse 100 100 100 Oximetry 03/05/17 03/05/17 03/05/17 22:50 23:00 23:03 Temperature Pulse Rate 54 L 52 L 54 L Pulse Rate [ Apical] Respiratory 16 16 Rate Blood Pressure 149/81 137/78 O2 Sat by Pulse 100 100 Oximetry 03/05/17 03/05/17 03/05/17 23:10 23:20 23:30 Temperature Pulse Rate 53 L 52 L 53 L Pulse Rate [ Apical] Respiratory 16 16 16 Rate Blood Pressure 137/78 133/79 140/77 O2 Sat by Pulse 100 100 100 Oximetry 03/05/17 03/05/17 03/06/17 23:40 23:50 00:00 Temperature Pulse Rate 52 L 52 L 51 L Pulse Rate [ 49 L Apical] Respiratory 16 16 16 Rate Blood Pressure 140/77 138/77 134/76 O2 Sat by Pulse 100 100 100 Oximetry 03/06/17 03/06/17 03/06/17 00:03 00:10 00:16 Temperature 99.6 F Pulse Rate 53 L 51 L Pulse Rate [ Apical] Respiratory 16 Rate Blood Pressure 140/77 134/76 O2 Sat by Pulse 100 100 Oximetry 03/06/17 03/06/17 03/06/17 00:20 00:30 00:40 Temperature Pulse Rate 51 L 50 L 49 L Pulse Rate [ Apical] Respiratory 16 16 16 Rate Blood Pressure 135/77 136/78 136/78 O2 Sat by Pulse 100 100 100 Oximetry 03/06/17 03/06/17 03/06/17 00:50 01:00 01:10 Temperature Pulse Rate 50 L 50 L 52 L Pulse Rate [ Apical] Respiratory 16 16 16 Rate Blood Pressure 140/80 139/78 139/78 O2 Sat by Pulse 100 100 100 Oximetry 03/06/17 03/06/17 03/06/17 01:20 01:30 01:40 Temperature Pulse Rate 51 L 52 L 50 L Pulse Rate [ Apical] Respiratory 16 16 16 Rate Blood Pressure 147/81 144/80 144/80 O2 Sat by Pulse 100 100 100 Oximetry 03/06/17 03/06/17 03/06/17 01:50 02:00 02:10 Temperature Pulse Rate 51 L 50 L 57 L Pulse Rate [ Apical] Respiratory 16 16 16 Rate Blood Pressure 143/78 140/81 140/81 O2 Sat by Pulse 100 100 100 Oximetry 03/06/17 03/06/17 03/06/17 02:20 02:30 02:40 Temperature Pulse Rate 54 L 53 L 51 L Pulse Rate [ Apical] Respiratory 16 16 16 Rate Blood Pressure 128/86 143/78 121/85 O2 Sat by Pulse 100 100 100 Oximetry 03/06/17 03/06/17 03/06/17 02:50 03:00 03:10 Temperature Pulse Rate 50 L 51 L 52 L Pulse Rate [ Apical] Respiratory 16 16 16 Rate Blood Pressure 148/81 147/79 147/79 O2 Sat by Pulse 100 100 100 Oximetry 03/06/17 03/06/17 03/06/17 03:20 03:30 03:40 Temperature Pulse Rate 50 L 49 L 50 L Pulse Rate [ Apical] Respiratory 16 16 16 Rate Blood Pressure 149/82 150/83 149/82 O2 Sat by Pulse 100 100 100 Oximetry 03/06/17 03/06/17 03/06/17 03:50 03:51 04:00 Temperature 100.0 F H Pulse Rate 51 L 51 L Pulse Rate [ 49 L Apical] Respiratory 16 16 Rate Blood Pressure 148/82 148/82 O2 Sat by Pulse 100 100 Oximetry 03/06/17 03/06/17 03/06/17 04:10 04:20 04:30 Temperature Pulse Rate 49 L 49 L 49 L Pulse Rate [ Apical] Respiratory 16 16 16 Rate Blood Pressure 145/79 143/80 143/80 O2 Sat by Pulse 100 100 Oximetry 03/06/17 03/06/17 03/06/17 04:40 04:50 05:00 Temperature Pulse Rate 49 L 49 L 49 L Pulse Rate [ Apical] Respiratory 16 16 16 Rate Blood Pressure 143/80 153/82 151/80 O2 Sat by Pulse 100 100 100 Oximetry 03/06/17 03/06/17 03/06/17 05:10 05:19 05:20 Temperature Pulse Rate 49 L 50 L 50 L Pulse Rate [ Apical] Respiratory 16 16 Rate Blood Pressure 151/80 149/80 149/80 O2 Sat by Pulse 100 100 100 Oximetry 03/06/17 03/06/17 03/06/17 05:30 05:40 05:50 Temperature Pulse Rate 49 L 49 L 48 L Pulse Rate [ Apical] Respiratory 16 16 16 Rate Blood Pressure 149/79 149/79 145/82 O2 Sat by Pulse 100 100 Oximetry 03/06/17 03/06/17 03/06/17 06:00 06:10 06:20 Temperature Pulse Rate 48 L 49 L 51 L Pulse Rate [ Apical] Respiratory 16 16 16 Rate Blood Pressure 149/78 149/78 152/80 O2 Sat by Pulse 100 100 Oximetry 03/06/17 03/06/17 03/06/17 06:30 06:40 06:50 Temperature Pulse Rate 55 L 56 L 54 L Pulse Rate [ Apical] Respiratory 16 16 16 Rate Blood Pressure 152/80 162/82 172/89 O2 Sat by Pulse 100 100 Oximetry 03/06/17 03/06/17 03/06/17 07:00 07:10 07:20 Temperature Pulse Rate 65 55 L 53 L Pulse Rate [ Apical] Respiratory 19 16 16 Rate Blood Pressure 177/96 162/82 163/84 O2 Sat by Pulse 100 100 Oximetry 03/06/17 03/06/17 03/06/17 07:30 07:40 07:50 Temperature Pulse Rate 51 L 51 L 50 L Pulse Rate [ Apical] Respiratory 16 16 16 Rate Blood Pressure 157/80 163/84 154/81 O2 Sat by Pulse 100 100 100 Oximetry 03/06/17 03/06/17 03/06/17 07:57 08:00 08:10 Temperature 99.6 F Pulse Rate 49 L 75 55 L Pulse Rate [ Apical] Respiratory 18 16 Rate Blood Pressure 149/78 146/113 146/113 O2 Sat by Pulse 100 100 100 Oximetry 03/06/17 03/06/17 08:20 08:30 Temperature Pulse Rate 54 L 55 L Pulse Rate [ Apical] Respiratory 17 16 Rate Blood Pressure 156/80 162/81 O2 Sat by Pulse 100 100 Oximetry Constitutional: no acute distress, lethargic, appears uncomfortable Eyes: non-icteric ENT: oropharynx moist, other (no goiter; ETT in mouth 22cm SONI) Neck: supple, no lymphadenopathy, no JVD Effort: mildly labored Ascultation: Bilateral: clear, diminished breath sounds Percussion: Bilateral: not dull Cardiovascular: regular rate and rhythm, other (no rubs or murmurs) Gastrointestinal: normoactive bowel sounds, soft, non-tender, non-distended, other (No HSM) Integumentary: normal, other (no rash or cellulitis) Extremities: no cyanosis, no edema, pulses normal, no ischemia or petechiae Neurologic: non-focal exam, pupils equal and round, CN II-XII normal, motor strength normal and Psychiatric: depressed CBC and BMP: 03/06/17 03:02 03/06/17 03:02 ABG, PT/INR, D-dimer: ABG POC ABG pH 7.518 (7.35-7.45) H 03/06/17 05:52 ABG pH 7.593 pH Units (7.350-7.450) H 03/05/17 00:30 POC ABG pCO2 36.9 (35-45) 03/06/17 05:52 ABG pCO2 30.6 mm Hg 03/05/17 00:30 POC ABG pO2 122 (80-105) H 03/06/17 05:52 ABG pO2 212.2 mm Hg (80.0-90.0) H 03/05/17 00:30 POC ABG HCO3 29.9 03/06/17 05:52 POC ABG Total CO2 31 03/06/17 05:52 POC ABG O2 Sat 99 03/06/17 05:52 ABG O2 Saturation 99.4 % (95.0-99.0) H 03/05/17 00:30 Abnormal lab findings: Abnormal Labs 03/05/17 03/05/17 03/05/17 07:21 07:21 16:56 WBC 12.0 H RBC 3.63 L Hgb Hct [place] % (Auto) [place] # POC ABG pH POC ABG pCO2 51.7 H POC ABG pO2 126 H Potassium 2.4 L* Calcium 7.8 L 03/06/17 03/06/17 03/06/17 03:02 03:02 05:33 WBC RBC 3.41 L Hgb 10.0 L Hct 29.7 L [place] % (Auto) 15.3 H [place] # 1.4 H POC ABG pH POC ABG pCO2 23.7 L POC ABG pO2 41 L Potassium 2.9 L* D Calcium 8.0 L 03/06/17 05:52 WBC RBC Hgb Hct [place] % (Auto) [place] # POC ABG pH 7.518 H POC ABG pCO2 POC ABG pO2 122 H Potassium Calcium Chest x-ray: image reviewed (ETT riding high and will advance 2 cm; No focal infiltrate) Allied health notes reviewed: RT
--- NOTE | 2017-03-06 09:53 | Progress Note ---
Assessment and Plan Assessment and plan: Drug overdose as suicidal attempt. patient took 24 pills of Benadryl and 32 sleeping pills. Acute respiratory failure. She is still intubated. Pulmonology following. Sedated with Fentanyl. Hypokalemia, secvere. Potassium still low at 2.9 even after replacement efforts. Will give further Potassium iv and recheck level in afternoon. Seizures. She had seizures in Emergency Department. DVT prophylaxis with Lovenox. Full code status. History Interval history: Patient had suicidal attempt by drug overdose, Still intubated Hospitalist Physical - Physical exam Narrative exam: Gen Appearance: Not in acute distress, HEENT: normocephalic, atraumatic Neck: supple, no JVD Lungs: Clear to auscultation, no rales, no wheezing, Heart: S1 and S2 regular, no murmurs,no rubs or gallop, Abdomen: Soft , non tender, non distended, normal bowel sounds Extremity: No edema, no clubbing or cyanosis, Neuro : Intubated, sedated - Constitutional Vitals: Temp Pulse Resp BP Pulse Ox 99.6 F 55 L 16 162/81 100 03/06/17 08:00 03/06/17 08:30 03/06/17 08:30 03/06/17 08:30 03/06/17 08:30 Results - Labs CBC & Chem 7: 03/06/17 03:02 03/06/17 16:20 Labs: Laboratory Last Values WBC 9.3 K/mm3 (4.5-11.0) 03/06/17 03:02 RBC 3.41 M/mm3 (3.65-5.03) L 03/06/17 03:02 Hgb 10.0 gm/dl (10.1-14.3) L 03/06/17 03:02 Hct 29.7 % (30.3-42.9) L 03/06/17 03:02 MCV 87 fl (79-97) 03/06/17 03:02 MCH 29 pg (28-32) 03/06/17 03:02 MCHC 34 % (30-34) 03/06/17 03:02 RDW 14.9 % (13.2-15.2) 03/06/17 03:02 Plt Count 168 K/mm3 (140-440) 03/06/17 03:02 Lymph % (Auto) 18.9 % (13.4-35.0) 03/06/17 03:02 [place] % (Auto) 15.3 % (0.0-7.3) H 03/06/17 03:02 Eos % (Auto) 1.1 % (0.0-4.3) 03/06/17 03:02 Baso % (Auto) 0.6 % (0.0-1.8) 03/06/17 03:02 Lymph # 1.8 K/mm3 (1.2-5.4) 03/06/17 03:02 [place] # 1.4 K/mm3 (0.0-0.8) H 03/06/17 03:02 Eos # 0.1 K/mm3 (0.0-0.4) 03/06/17 03:02 Baso # 0.1 K/mm3 (0.0-0.1) 03/06/17 03:02 Seg Neutrophils % 64.1 % (40.0-70.0) 03/06/17 03:02 Seg Neutrophils # 6.0 K/mm3 (1.8-7.7) 03/06/17 03:02 POC ABG pH 7.518 (7.35-7.45) H 03/06/17 05:52 ABG pH 7.593 pH Units (7.350-7.450) H 03/05/17 00:30 POC ABG pCO2 36.9 (35-45) 03/06/17 05:52 ABG pCO2 30.6 mm Hg 03/05/17 00:30 POC ABG pO2 122 (80-105) H 03/06/17 05:52 ABG pO2 212.2 mm Hg (80.0-90.0) H 03/05/17 00:30 POC ABG HCO3 29.9 03/06/17 05:52 ABG HCO3 28.9 mmol/L (20.0-26.0) H 03/05/17 00:30 POC ABG Total CO2 31 03/06/17 05:52 POC ABG O2 Sat 99 03/06/17 05:52 ABG O2 Saturation 99.4 % (95.0-99.0) H 03/05/17 00:30 ABG O2 Content 20.6 (0.0-44) 03/05/17 00:30 POC ABG Base Excess 7 03/06/17 05:52 ABG Base Excess 7.6 mmol/L (-2.0-3.0) H 03/05/17 00:30 ABG Hemoglobin 14.7 gm/dl (12.0-16.0) 03/05/17 00:30 ABG Carboxyhemoglobin 1.3 % (0.0-5.0) 03/05/17 00:30 ABG Methemoglobin 0.5 % (0.0-1.5) 03/05/17 00:30 Oxyhemoglobin 97.6 % (95.0-99.0) 03/05/17 00:30 FiO2 30 % 03/06/17 05:52 Sodium 144 mmol/L (137-145) 03/06/17 03:02 Potassium 2.9 mmol/L (3.6-5.0) L* D 03/06/17 03:02 Chloride 106.9 mmol/L (98-107) 03/06/17 03:02 Carbon Dioxide 25 mmol/L (22-30) 03/06/17 03:02 Anion Gap 15 mmol/L 03/06/17 03:02 BUN 12 mg/dL (7-17) 03/06/17 03:02 Creatinine 0.8 mg/dL (0.7-1.2) 03/06/17 03:02 Estimated GFR > 60 ml/min 03/06/17 03:02 BUN/Creatinine Ratio 15 % 03/06/17 03:02 Glucose 71 mg/dL (65-100) 03/06/17 03:02 Lactic Acid 1.10 mmol/L (0.7-2.0) 03/05/17 10:48 Calcium 8.0 mg/dL (8.4-10.2) L 03/06/17 03:02 Magnesium 1.90 mg/dL (1.7-2.3) 03/05/17 10:48 Total Bilirubin 0.40 mg/dL (0.1-1.2) 03/04/17 23:14 Direct Bilirubin < 0.2 mg/dL (0-0.2) 03/04/17 23:14 Indirect Bilirubin 0.2 mg/dL 03/04/17 23:14 AST 15 units/L (5-40) 03/04/17 23:14 ALT 10 units/L (7-56) 03/04/17 23:14 Alkaline Phosphatase 86 units/L (35-129) 03/04/17 23:14 Total Creatine Kinase 60 units/L (30-135) 03/05/17 10:48 CK-MB (CK-2) < 1.0 ng/mL (0.0-4.0) 03/05/17 10:48 CK-MB (CK-2) Rel Index 1.6 (0-4) 03/05/17 10:48 Troponin T < 0.010 ng/mL (0.00-0.029) 03/05/17 10:48 Total Protein 6.8 g/dL (6.3-8.2) 03/04/17 23:14 Albumin 3.9 g/dL (3.9-5) 03/04/17 23:14 Albumin/Globulin Ratio 1.3 % 03/04/17 23:14 HCG, Qual Negative (Negative) 03/04/17 23:14 Urine Color Straw (Yellow) 03/05/17 02:07 Urine Turbidity Clear (Clear) 03/05/17 02:07 Urine pH 9.0 (5.0-7.0) H 03/05/17 02:07 Ur Specific [place] 1.010 (1.003-1.030) 03/05/17 02:07 Urine Protein <15 mg/dl mg/dL (Negative) 03/05/17 02:07 Urine Glucose (UA) Neg mg/dL (Negative) 03/05/17 02:07 Urine Ketones Neg mg/dL (Negative) 03/05/17 02:07 Urine Blood Neg (Negative) 03/05/17 02:07 Urine Nitrite Neg (Negative) 03/05/17 02:07 Urine Bilirubin Neg (Negative) 03/05/17 02:07 Urine Urobilinogen < 2.0 mg/dL (<2.0) 03/05/17 02:07 Ur Leukocyte Esterase Neg (Negative) 03/05/17 02:07 Urine WBC (Auto) < 1.0 /HPF (0.0-6.0) 03/05/17 02:07 Urine RBC (Auto) 1.0 /HPF (0.0-6.0) 03/05/17 02:07 U Epithel Cells (Auto) < 1.0 /HPF (0-13.0) 03/05/17 02:07 Hyaline Casts 1 /LPF 03/05/17 02:07 Salicylates < 0.3 mg/dL (2.8-20.0) L 03/04/17 23:14 Urine Opiates Screen Presumptive negative 03/05/17 02:07 Urine Methadone Screen Presumptive negative 03/05/17 02:07 Acetaminophen < 15.0 ug/mL (10.0-30.0) 03/04/17 23:14 Ur Barbiturates Screen Presumptive negative 03/05/17 02:07 Ur Phencyclidine Scrn Presumptive negative 03/05/17 02:07 Ur Amphetamines Screen Presumptive negative 03/05/17 02:07 U Benzodiazepines Scrn Presumptive positive 03/05/17 02:07 Urine Cocaine Screen Presumptive negative 03/05/17 02:07 U Marijuana (THC) Screen Presumptive negative 03/05/17 02:07 Drugs of Abuse Note Disclamer 03/05/17 02:07 Plasma/Serum Alcohol < 0.01 gm% (0-0.07) 03/04/17 23:14
[2017-03-06] MEDS: LOVENOX SUB-Q SCH (13:37)
[2017-03-06] MEDS: PEPCID IV SCH ×2 (13:38→21:19)
[2017-03-06 14:13] LABS: ISTAT Base Excess 4; ISTAT HCO3 28.9; ISTAT PCO2 47.4 (35-45); ISTAT PH 7.393 (7.35-7.45); ISTAT PO2 112 (80-105); ISTAT SO2 98; ISTAT TCO2 30
--- NOTE | 2017-03-06 19:23 | XRay Report ---
FINAL REPORT EXAM: XR ABDOMEN 1V AP HISTORY: new ng tube TECHNIQUE: KUB view(s) of abdomen. PRIORS: None. FINDINGS: NG tube extends below the diaphragm, with tip projected over the upper-mid abdomen. No significant bowel dilatation or apparent pneumoperitoneum. No abnormal calcifications. Osseous structures grossly unremarkable. IMPRESSION: 1. NG tube position as reported. 2. Nonobstructive bowel gas pattern.
[2017-03-06] MEDS: POTASSIUM CHLORIDE FEEDTUBE SCH ×2 (19:40→23:20)
[2017-03-06] MEDS ORDERED: MAGNESIUM SULFATE 1 GM in NACL 0.9% 50 ML IV ONE (20:00)
[2017-03-07] MEDS: POTASSIUM CHLORIDE FEEDTUBE SCH (05:06)
[2017-03-07 05:39] LABS: Hemoglobin 12.2 gm/dl (10.1-14.3); Mean Corpuscular HGB Conc 34 % (30-34); Mean Corpuscular Hemoglobin 31 pg (28-32); Mean Corpuscular Volume 91 fl (79-97); Platelet Count 196 K/mm3 (140-440); Red Blood Count 4.02 M/mm3 (3.65-5.03); Red Cell Distribution Width 15.1 % (13.2-15.2); White Blood Count 13.2 K/mm3 (4.5-11.0)
[2017-03-07 05:43] LABS: Hematocrit 34.2 % (30.3-42.9)
[2017-03-07 06:04] LABS: Anion Gap 17 mmol/L; BUN/Creatinine Ratio 16; Blood Urea Nitrogen 11 mg/dL (7-17); Calcium 8.4 mg/dL (8.4-10.2); Carbon Dioxide 26 mmol/L (22-30); Chloride 106.4 mmol/L (98-107); Glucose 81 mg/dL (65-100); Potassium 3.6 mmol/L (3.6-5.0); Sodium 146 mmol/L (137-145)
--- NOTE | 2017-03-07 07:24 | XRay Report ---
AP CHEST: HISTORY: Followup respiratory failure The patient has been extubated. The nasogastric tube remains in good position. The lungs are clear. Heart and mediastinal structures are within normal limits. No acute process is noted. IMPRESSION: Unremarkable AP chest.
[2017-03-07] MEDS: LOVENOX SUB-Q SCH (09:25)
[2017-03-07] MEDS: PEPCID PO SCH ×2 (09:26→21:10)
[2017-03-07 09:29] LABS: ISTAT Base Excess TNR; ISTAT DEVICE TNR; ISTAT HCO3 TNR; ISTAT PCO2 TNR (35-45); ISTAT PH TNR (7.35-7.45); ISTAT PO2 TNR (80-105); ISTAT SITE TNR; ISTAT SO2 TNR; ISTAT TCO2 TNR
[2017-03-07] MEDS ORDERED: POTASSIUM CHLORIDE PO SCH (10:00)
--- NOTE | 2017-03-07 10:57 | Progress Note ---
Assessment and Plan Assessment and plan: Drug overdose as suicidal attempt. patient took 24 pills of Benadryl and 32 Unisom sleeping pills( which is also Benadryl), therefore total 56 Benadryl pills. Acute respiratory failure. She was extubated yesterday. Initially intubated. Pulmonology following. SIRS with fever,leukocytosis. Will monitor. No source of infection. Fever of 100 degrees from SIRS or seizures Hypokalemia, severe. Potassium was low at 2.4, improving. Will recheck in afternoon. Seizures. She had seizures in Emergency Department.No more seizures. Continue Keppra DVT prophylaxis with Lovenox. Full code status. Suicidal watch with 1:1 sitter History Interval history: Patient had suicidal attempt by drug overdose, Was intubated, and extubated yesterday Generalized weakness Hospitalist Physical - Physical exam Narrative exam: Gen Appearance: Not in acute distress, HEENT: normocephalic, atraumatic Neck: supple, no JVD Lungs: Clear to auscultation, no rales, no wheezing, Heart: S1 and S2 regular, no murmurs,no rubs or gallop, Abdomen: Soft , non tender, non distended, normal bowel sounds Extremity: No edema, no clubbing or cyanosis, Neuro :Extubated, awake,alert,moves all ext - Constitutional Vitals: Temp Pulse Resp BP Pulse Ox 98.8 F 73 23 157/88 98 03/07/17 04:00 03/07/17 10:00 03/07/17 10:00 03/07/17 10:00 03/07/17 10:36 Results - Labs CBC & Chem 7: 03/07/17 05:11 03/07/17 15:44 Labs: Laboratory Last Values WBC 13.2 K/mm3 (4.5-11.0) H 03/07/17 05:11 RBC 4.02 M/mm3 (3.65-5.03) 03/07/17 05:11 Hgb 12.2 gm/dl (10.1-14.3) 03/07/17 05:11 Hct 34.2 % (30.3-42.9) 03/07/17 05:11 MCV 91 fl (79-97) 03/07/17 05:11 MCH 31 pg (28-32) 03/07/17 05:11 MCHC 34 % (30-34) 03/07/17 05:11 RDW 15.1 % (13.2-15.2) 03/07/17 05:11 Plt Count 196 K/mm3 (140-440) 03/07/17 05:11 Lymph % (Auto) 18.9 % (13.4-35.0) 03/06/17 03:02 [place] % (Auto) 15.3 % (0.0-7.3) H 03/06/17 03:02 Eos % (Auto) 1.1 % (0.0-4.3) 03/06/17 03:02 Baso % (Auto) 0.6 % (0.0-1.8) 03/06/17 03:02 Lymph # 1.8 K/mm3 (1.2-5.4) 03/06/17 03:02 [place] # 1.4 K/mm3 (0.0-0.8) H 03/06/17 03:02 Eos # 0.1 K/mm3 (0.0-0.4) 03/06/17 03:02 Baso # 0.1 K/mm3 (0.0-0.1) 03/06/17 03:02 Seg Neutrophils % 64.1 % (40.0-70.0) 03/06/17 03:02 Seg Neutrophils # 6.0 K/mm3 (1.8-7.7) 03/06/17 03:02 POC ABG pH 7.393 (7.35-7.45) 03/06/17 14:06 ABG pH 7.593 pH Units (7.350-7.450) H 03/05/17 00:30 POC ABG pCO2 47.4 (35-45) H 03/06/17 14:06 ABG pCO2 30.6 mm Hg 03/05/17 00:30 POC ABG pO2 112 (80-105) H 03/06/17 14:06 ABG pO2 212.2 mm Hg (80.0-90.0) H 03/05/17 00:30 POC ABG HCO3 28.9 03/06/17 14:06 ABG HCO3 28.9 mmol/L (20.0-26.0) H 03/05/17 00:30 POC ABG Total CO2 30 03/06/17 14:06 POC ABG O2 Sat 98 03/06/17 14:06 ABG O2 Saturation 99.4 % (95.0-99.0) H 03/05/17 00:30 ABG O2 Content 20.6 (0.0-44) 03/05/17 00:30 POC ABG Base Excess 4 03/06/17 14:06 ABG Base Excess 7.6 mmol/L (-2.0-3.0) H 03/05/17 00:30 ABG Hemoglobin 14.7 gm/dl (12.0-16.0) 03/05/17 00:30 ABG Carboxyhemoglobin 1.3 % (0.0-5.0) 03/05/17 00:30 ABG Methemoglobin 0.5 % (0.0-1.5) 03/05/17 00:30 Oxyhemoglobin 97.6 % (95.0-99.0) 03/05/17 00:30 FiO2 30 % 03/06/17 14:06 Sodium 146 mmol/L (137-145) H 03/07/17 05:11 Potassium 3.6 mmol/L (3.6-5.0) D 03/07/17 05:11 Chloride 106.4 mmol/L (98-107) 03/07/17 05:11 Carbon Dioxide 26 mmol/L (22-30) 03/07/17 05:11 Anion Gap 17 mmol/L 03/07/17 05:11 BUN 11 mg/dL (7-17) 03/07/17 05:11 Creatinine 0.7 mg/dL (0.7-1.2) 03/07/17 05:11 Estimated GFR > 60 ml/min 03/07/17 05:11 BUN/Creatinine Ratio 16 % 03/07/17 05:11 Glucose 81 mg/dL (65-100) 03/07/17 05:11 Lactic Acid 1.10 mmol/L (0.7-2.0) 03/05/17 10:48 Calcium 8.4 mg/dL (8.4-10.2) 03/07/17 05:11 Magnesium 2.10 mg/dL (1.7-2.3) 03/07/17 05:11 Total Bilirubin 0.40 mg/dL (0.1-1.2) 03/04/17 23:14 Direct Bilirubin < 0.2 mg/dL (0-0.2) 03/04/17 23:14 Indirect Bilirubin 0.2 mg/dL 03/04/17 23:14 AST 15 units/L (5-40) 03/04/17 23:14 ALT 10 units/L (7-56) 03/04/17 23:14 Alkaline Phosphatase 86 units/L (35-129) 03/04/17 23:14 Total Creatine Kinase 60 units/L (30-135) 03/05/17 10:48 CK-MB (CK-2) < 1.0 ng/mL (0.0-4.0) 03/05/17 10:48 CK-MB (CK-2) Rel Index 1.6 (0-4) 03/05/17 10:48 Troponin T < 0.010 ng/mL (0.00-0.029) 03/05/17 10:48 Total Protein 6.8 g/dL (6.3-8.2) 03/04/17 23:14 Albumin 3.9 g/dL (3.9-5) 03/04/17 23:14 Albumin/Globulin Ratio 1.3 % 03/04/17 23:14 HCG, Qual Negative (Negative) 03/04/17 23:14 Urine Color Straw (Yellow) 03/05/17 02:07 Urine Turbidity Clear (Clear) 03/05/17 02:07 Urine pH 9.0 (5.0-7.0) H 03/05/17 02:07 Ur Specific [place] 1.010 (1.003-1.030) 03/05/17 02:07 Urine Protein <15 mg/dl mg/dL (Negative) 03/05/17 02:07 Urine Glucose (UA) Neg mg/dL (Negative) 03/05/17 02:07 Urine Ketones Neg mg/dL (Negative) 03/05/17 02:07 Urine Blood Neg (Negative) 03/05/17 02:07 Urine Nitrite Neg (Negative) 03/05/17 02:07 Urine Bilirubin Neg (Negative) 03/05/17 02:07 Urine Urobilinogen < 2.0 mg/dL (<2.0) 03/05/17 02:07 Ur Leukocyte Esterase Neg (Negative) 03/05/17 02:07 Urine WBC (Auto) < 1.0 /HPF (0.0-6.0) 03/05/17 02:07 Urine RBC (Auto) 1.0 /HPF (0.0-6.0) 03/05/17 02:07 U Epithel Cells (Auto) < 1.0 /HPF (0-13.0) 03/05/17 02:07 Hyaline Casts 1 /LPF 03/05/17 02:07 Salicylates < 0.3 mg/dL (2.8-20.0) L 03/04/17 23:14 Urine Opiates Screen Presumptive negative 03/05/17 02:07 Urine Methadone Screen Presumptive negative 03/05/17 02:07 Acetaminophen < 15.0 ug/mL (10.0-30.0) 03/04/17 23:14 Ur Barbiturates Screen Presumptive negative 03/05/17 02:07 Ur Phencyclidine Scrn Presumptive negative 03/05/17 02:07 Ur Amphetamines Screen Presumptive negative 03/05/17 02:07 U Benzodiazepines Scrn Presumptive positive 03/05/17 02:07 Urine Cocaine Screen Presumptive negative 03/05/17 02:07 U Marijuana (THC) Screen Presumptive negative 03/05/17 02:07 Drugs of Abuse Note Disclamer 03/05/17 02:07 Plasma/Serum Alcohol < 0.01 gm% (0-0.07) 03/04/17 23:14
[2017-03-07] MEDS: NORVASC PO SCH (12:14)
--- NOTE | 2017-03-07 18:33 | Progress Note ---
Subjective Date of service: 03/07/17 Principal diagnosis: Drug Overdose (Benadrl); Acute Respiratory Failure on MVS Interval history: Patient is seen today for: Acute resp failure on MVS; S/P Drug OD with benadryl Seen and examined at bedside; 24hour events reviewed; nursing and respiratory care staff consulted; no adverse overnight events reported to me; Objective Vital Signs - 12hr 03/07/17 03/07/17 03/07/17 07:00 08:00 09:00 Temperature 98.9 F Pulse Rate 69 68 68 Respiratory 23 23 22 Rate Blood Pressure 154/85 168/89 164/89 O2 Sat by Pulse 100 100 100 Oximetry 03/07/17 03/07/17 03/07/17 10:00 10:36 11:00 Temperature Pulse Rate 73 69 Respiratory 23 25 H Rate Blood Pressure 157/88 158/83 O2 Sat by Pulse 100 98 97 Oximetry 03/07/17 03/07/17 03/07/17 12:00 12:14 13:00 Temperature 98.8 F Pulse Rate 71 71 70 Respiratory 22 27 H Rate Blood Pressure 158/82 158/82 151/86 O2 Sat by Pulse 96 96 Oximetry 03/07/17 03/07/17 03/07/17 14:00 15:00 16:00 Temperature 98.7 F Pulse Rate 71 73 Respiratory 25 H 25 H Rate Blood Pressure 154/88 145/85 O2 Sat by Pulse 97 96 Oximetry 03/07/17 03/07/17 16:12 17:00 Temperature Pulse Rate 83 69 Respiratory 17 19 Rate Blood Pressure 146/89 159/92 O2 Sat by Pulse 98 95 Oximetry Constitutional: no acute distress, lethargic, appears uncomfortable Eyes: non-icteric ENT: oropharynx moist, other (no goiter; ETT in mouth 22cm SONI) Neck: supple, no lymphadenopathy, no JVD Effort: mildly labored Ascultation: Bilateral: clear, diminished breath sounds Percussion: Bilateral: not dull Cardiovascular: regular rate and rhythm, other (no rubs or murmurs) Gastrointestinal: normoactive bowel sounds, soft, non-tender, non-distended, other (No HSM) Integumentary: normal, other (no rash or cellulitis) Extremities: no cyanosis, no edema, pulses normal, no ischemia or petechiae Neurologic: non-focal exam, pupils equal and round, CN II-XII normal, motor strength normal and Psychiatric: depressed CBC and BMP: 03/07/17 05:11 03/07/17 15:44 ABG, PT/INR, D-dimer: ABG POC ABG pH 7.393 (7.35-7.45) 03/06/17 14:06 ABG pH 7.593 pH Units (7.350-7.450) H 03/05/17 00:30 POC ABG pCO2 47.4 (35-45) H 03/06/17 14:06 ABG pCO2 30.6 mm Hg 03/05/17 00:30 POC ABG pO2 112 (80-105) H 03/06/17 14:06 ABG pO2 212.2 mm Hg (80.0-90.0) H 03/05/17 00:30 POC ABG HCO3 28.9 03/06/17 14:06 POC ABG Total CO2 30 03/06/17 14:06 POC ABG O2 Sat 98 03/06/17 14:06 ABG O2 Saturation 99.4 % (95.0-99.0) H 03/05/17 00:30 Abnormal lab findings: Abnormal Labs 03/05/17 03/05/17 03/05/17 07:21 07:21 16:56 WBC 12.0 H RBC 3.63 L Hgb Hct [place] % (Auto) [place] # POC ABG pH POC ABG pCO2 51.7 H POC ABG pO2 126 H Sodium Potassium 2.4 L* Calcium 7.8 L 03/06/17 03/06/17 03/06/17 03:02 03:02 05:52 WBC RBC 3.41 L Hgb 10.0 L Hct 29.7 L [place] % (Auto) 15.3 H [place] # 1.4 H POC ABG pH 7.518 H POC ABG pCO2 POC ABG pO2 122 H Sodium Potassium 2.9 L* D Calcium 8.0 L 03/06/17 03/06/17 03/07/17 14:06 16:20 05:11 WBC 13.2 H RBC Hgb Hct [place] % (Auto) [place] # POC ABG pH POC ABG pCO2 47.4 H POC ABG pO2 112 H Sodium Potassium 2.5 L* Calcium 03/07/17 03/07/17 05:11 15:44 WBC RBC Hgb Hct [place] % (Auto) [place] # POC ABG pH POC ABG pCO2 POC ABG pO2 Sodium 146 H Potassium 3.3 L Calcium Allied health notes reviewed: RT
[2017-03-07] MEDS: POTASSIUM CHLORIDE PO SCH ×2 (21:11→22:28)
[2017-03-08 05:25] LABS: Hematocrit 32.8 % (30.3-42.9); Hemoglobin 11.3 gm/dl (10.1-14.3); Mean Corpuscular HGB Conc 35 % (30-34); Mean Corpuscular Hemoglobin 30 pg (28-32); Mean Corpuscular Volume 88 fl (79-97); Platelet Count 214 K/mm3 (140-440); Red Blood Count 3.74 M/mm3 (3.65-5.03); Red Cell Distribution Width 14.5 % (13.2-15.2); White Blood Count 6.8 K/mm3 (4.5-11.0)
[2017-03-08 05:42] LABS: Anion Gap 11 mmol/L; BUN/Creatinine Ratio 11; Blood Urea Nitrogen 8 mg/dL (7-17); Calcium 8.3 mg/dL (8.4-10.2); Carbon Dioxide 31 mmol/L (22-30); Chloride 104.8 mmol/L (98-107); Glucose 105 mg/dL (65-100); Potassium 3.2 mmol/L (3.6-5.0); Sodium 144 mmol/L (137-145)
[2017-03-08] MEDS ORDERED: POTASSIUM CHLORIDE FEEDTUBE SCH (08:00)
[2017-03-08] MEDS: POTASSIUM CHLORIDE PO SCH ×3 (08:46→17:49)
[2017-03-08] MEDS: PEPCID PO SCH (09:43)
[2017-03-08] MEDS: LOVENOX SUB-Q SCH (09:43)
--- NOTE | 2017-03-08 09:44 | Progress Note ---
Subjective Date of service: 03/08/17 Principal diagnosis: Drug Overdose (Benadrl); Acute Respiratory Failure on MVS Interval history: Patient is seen today for: Seen and examined at bedside; 24hour events reviewed; nursing and respiratory care staff consulted; no adverse overnight events reported to me; Objective Vital Signs - 12hr 03/07/17 03/07/17 03/07/17 23:15 23:30 23:39 Temperature 99.4 F 99.4 F 99.4 F Pulse Rate 67 65 Respiratory 20 20 Rate Blood Pressure 144/78 Blood Pressure 144/78 [Right] O2 Sat by Pulse 99 100 Oximetry 03/07/17 03/08/17 03/08/17 23:40 00:55 04:26 Temperature 99.4 F 98.8 F Pulse Rate 67 67 64 Respiratory 20 20 Rate Blood Pressure 158/87 Blood Pressure [Right] O2 Sat by Pulse 100 96 Oximetry 03/08/17 03/08/17 05:14 07:53 Temperature 98.3 F Pulse Rate 64 Respiratory 20 Rate Blood Pressure 158/87 Blood Pressure [Right] O2 Sat by Pulse 96 Oximetry Constitutional: no acute distress, lethargic, appears uncomfortable Eyes: non-icteric ENT: oropharynx moist, other (no goiter; ETT in mouth 22cm SONI) Neck: supple, no lymphadenopathy, no JVD Effort: mildly labored Ascultation: Bilateral: clear, diminished breath sounds Percussion: Bilateral: not dull Cardiovascular: regular rate and rhythm, other (no rubs or murmurs) Gastrointestinal: normoactive bowel sounds, soft, non-tender, non-distended, other (No HSM) Integumentary: normal, other (no rash or cellulitis) Extremities: no cyanosis, no edema, pulses normal, no ischemia or petechiae Neurologic: non-focal exam, pupils equal and round, CN II-XII normal, motor strength normal and Psychiatric: depressed CBC and BMP: 03/08/17 04:50 03/08/17 04:50 ABG, PT/INR, D-dimer: ABG POC ABG pH 7.393 (7.35-7.45) 03/06/17 14:06 ABG pH 7.593 pH Units (7.350-7.450) H 03/05/17 00:30 POC ABG pCO2 47.4 (35-45) H 03/06/17 14:06 ABG pCO2 30.6 mm Hg 03/05/17 00:30 POC ABG pO2 112 (80-105) H 03/06/17 14:06 ABG pO2 212.2 mm Hg (80.0-90.0) H 03/05/17 00:30 POC ABG HCO3 28.9 03/06/17 14:06 POC ABG Total CO2 30 03/06/17 14:06 POC ABG O2 Sat 98 03/06/17 14:06 ABG O2 Saturation 99.4 % (95.0-99.0) H 03/05/17 00:30 Abnormal lab findings: Abnormal Labs 03/05/17 03/05/17 03/05/17 07:21 07:21 16:56 WBC 12.0 H RBC 3.63 L Hgb Hct MCHC [place] % (Auto) [place] # POC ABG pH POC ABG pCO2 51.7 H POC ABG pO2 126 H Sodium Potassium 2.4 L* Carbon Dioxide Glucose Calcium 7.8 L 03/06/17 03/06/17 03/06/17 03:02 03:02 05:52 WBC RBC 3.41 L Hgb 10.0 L Hct 29.7 L MCHC [place] % (Auto) 15.3 H [place] # 1.4 H POC ABG pH 7.518 H POC ABG pCO2 POC ABG pO2 122 H Sodium Potassium 2.9 L* D Carbon Dioxide Glucose Calcium 8.0 L 03/06/17 03/06/17 03/07/17 14:06 16:20 05:11 WBC 13.2 H RBC Hgb Hct MCHC [place] % (Auto) [place] # POC ABG pH POC ABG pCO2 47.4 H POC ABG pO2 112 H Sodium Potassium 2.5 L* Carbon Dioxide Glucose Calcium 03/07/17 03/07/17 03/08/17 05:11 15:44 04:50 WBC RBC Hgb Hct MCHC 35 H [place] % (Auto) [place] # POC ABG pH POC ABG pCO2 POC ABG pO2 Sodium 146 H Potassium 3.3 L Carbon Dioxide Glucose Calcium 03/08/17 04:50 WBC RBC Hgb Hct MCHC [place] % (Auto) [place] # POC ABG pH POC ABG pCO2 POC ABG pO2 Sodium Potassium 3.2 L Carbon Dioxide 31 H Glucose 105 H Calcium 8.3 L Allied health notes reviewed: RT
[2017-03-08] MEDS: NORVASC PO SCH (09:57)
[2017-03-08 14:38] VITALS: BP 155/92
--- NOTE | 2017-03-08 15:46 | Discharge Summary ---
Providers - Providers Date of Admission: 03/05/17 02:23 Date of discharge: 03/08/17 Attending physician: GALILEA DECKER 03/07/17 09:51 Consult to Mental Health [CONS] Routine Reason For Exam: suicidal attempt by drug overdose Place consult to:: Psych Notified:: [id number] Phone number called:: [phone] Was contact made?: Yes Time called:: 09:26 Comment:: Call placed by Aury Clarke childbirth and infant care teacher physician: RESAW TAILER Hospitalization Condition: Fair Disposition: [id number]/[place]-[id number] PSY HOSP/PSY UNIT - Discharge Diagnoses (1) Suicidal deliberate poisoning Status: Acute Qualifiers: Encounter type: E Exam - Constitutional Vitals: Temp Pulse Resp BP Pulse Ox 99 F 78 20 155/92 97 03/08/17 14:25 03/08/17 14:25 03/08/17 14:25 03/08/17 14:25 03/08/17 14:25 Plan Activity: advance as tolerated Diet: regular Additional Instructions: 1.Check BMP on Saturday03/12/17 to monitor Potassium. Follow up with: KAREN CHANDLER MD [Primary Care Provider] - 7 Days Prescriptions: amLODIPine [Norvasc] 10 mg PO DAILY #30 tab Famotidine [Pepcid] 20 mg PO BID #60 tablet Potassium Chloride 40 meq PO DAILY 7 Days
== END 2017-03-08 19:30 | DRG 917 ==
LOC: ED 22:15 → EEVIPCON 22:15 → CC1 03-05 02:23 → 4A 03-07 19:22
PROVIDERS: ADMIT Internal Medicine; ATTEND Internal Medicine
PROC: 5A1945Z Respiratory Ventilation, 24-96 Consecutive Hours (ICD-10-PCS; principal; 2017-03-05)
PROC: 0BH18EZ Insertion of Endotracheal Airway into Trachea, Via Natural or Artificial Opening Endoscopic (ICD-10-PCS; 2017-03-05)
DX: T44.3X2A Poisoning by other parasympatholytics [anticholinergics and antimuscarinics] and spasmolytics, intentional self-harm, initial encounter (principal); J96.00 Acute respiratory failure, unspecified whether with hypoxia or hypercapnia; T45.0X2A Poisoning by antiallergic and antiemetic drugs, intentional self-harm, initial encounter; F32.9 Major depressive disorder, single episode, unspecified; D64.9 Anemia, unspecified; E87.6 Hypokalemia; I10 Essential (primary) hypertension; R56.9 Unspecified convulsions; Y92.89 Other specified places as the place of occurrence of the external cause; Z82.49 Family history of ischemic heart disease and other diseases of the circulatory system; R13.12 Dysphagia, oropharyngeal phase
CPT/HCPCS: 36415; 36600; 70450; 71010; 74000; 80048; 80074; 80307; 80320; 81001; 82140; 82550; 82553; 82803; 83735; 84132; 84484; 84703; 85025; 85027; 93005; 93010; 94002; 94003; 94760; 96374; 96375; 96376; 99285; G0480; J0330; J1650; J2060; J2250; J3010; J3475; J3480; J7030; J7040